=== PATIENT | female | born 1955 | race Caucasian/White ===

== ENCOUNTER 2018-07-18 12:41 | Emergency (ER) | payer MEDICAID ==
[2018-07-18 12:55] VITALS: BMI 24.6
[2018-07-18 12:59] VITALS: RESP 18
[2018-07-18] MEDS ORDERED: Belladonna-Phenobarbital PO STA (13:41)
[2018-07-18] MEDS ORDERED: Aluminum Hydroxide/Magnesium Hydroxide Susp (30 mL) PO STA (13:41)
[2018-07-18] MEDS ORDERED: Belladonna-Phenobarbital ONE (13:51)
[2018-07-18] MEDS ORDERED: Aluminum Hydroxide/Magnesium Hydroxide Susp (30 mL) ONE (13:51)
[2018-07-18 13:53] LABS: BASO % 0.6 % (0.0-2.0); EOS # 0.1 K/uL (0.0-0.7); EOS % 2.4 % (0.0-4.0); HEMOGLOBIN 13.4 g/dL (11.0-16.0); LYMPH # 1.7 K/uL (1.0-4.3); LYMPH % 31.1 % (20.0-40.0); MEAN CELL VOLUME 95.9 fL (81.0-99.0); MEAN CORPUSCULAR HEMOGLOBIN 32.9 pg (27.0-31.0); MEAN CORPUSCULAR HGB CONC 34.3 g/dL (33.0-37.0); MEAN PLATELET VOLUME 7.1 fL (7.2-11.7); MONO # 0.5 K/uL (0.0-0.8); MONO % 8.3 % (0.0-10.0); NEUT # 3.2 K/uL (1.8-7.0); NEUT % 57.6 % (50.0-75.0); RBC 4.06 Mil/uL (3.80-5.20); RED CELL DISTRIBUTION WIDTH 12.8 % (11.5-14.5); WHITE BLOOD COUNT 5.6 K/uL (4.8-10.8)
[2018-07-18 14:08] LABS: ALB/GLOB RATIO 1.9 (1.0-2.1); ALBUMIN 5.1 g/dL (3.5-5.0); ALT/SGPT 13 U/L (9-52); AST/SGOT 28 U/L (14-36); BLOOD UREA NITROGEN 18 mg/dL (7-17); CALCIUM 9.8 mg/dl (8.6-10.4); GFR NON-AFRICAN AMERICAN > 60
[2018-07-18 14:20] LABS: B-TYPE NATRIURETIC PEPTIDE 111 pg/mL (0-900)
[2018-07-18 15:18] VITALS: BP 116/76; PULSE 78; TEMP 98.4; O2SAT 99
--- NOTE | 2018-07-18 16:22 | C.PDOC ---
History Of Present Illness Patient is a 62 year old female, with a PMHx of glaucoma, follows up with ophthalmology, who presents to the ED c/o epigastric abdominal pain that began yesterday. Patient states that the pain is strong and rates it is a 8/10. She al so notes an associated acidic taste on her mouth. She states that she had fired pork and tortillas yesterday and that her pain improves with deep breaths. Patient denies any SOB, dyspnea on exertion, dizziness, sweating, nausea, vomiting, headaches, chills, or pain exacerbation with exercise. Time Seen by Provider: 07/18/18 13:27 Chief Complaint (Nursing): Abdominal Pain History Per: Patient History/Exam Limitations: no limitations Onset/Duration Of Symptoms: Days (1) Current Symptoms Are (Timing): Still Present Pain Scale Rating Of: 8 Location Of Pain/Discomfort: Epigastric Quality Of Discomfort: "Pain" Associated Symptoms: Other (acidic taste in mouth). denies: Chills, Nausea, Vomiting Exacerbating Factors: denies: Movement Alleviating Factors: Other (deep breaths) Recent travel outside of the [place]: No Additional History Per: Patient Past Medical History Reviewed: Historical Data, Nursing Documentation, Vital Signs Vital Signs: Last Vital Signs Temp 98.4 F 07/18/18 15:18 Pulse 78 07/18/18 15:18 Resp 18 07/18/18 15:18 BP 116/76 07/18/18 15:18 Pulse Ox 99 07/18/18 15:18 - Medical History PMH: No Chronic Diseases Surgical History: No Surg Hx Family History: States: No Known Family Hx - Social History Hx Alcohol Use: No Hx Substance Use: No - Immunization History Hx Tetanus Toxoid Vaccination: No Hx Influenza Vaccination: No Hx Pneumococcal Vaccination: No Review Of Systems Constitutional: Negative for: Chills, Sweats ENT: Positive for: Other (acidic taste in mouth) Respiratory: Negative for: Shortness of Breath, SOB with Excertion Gastrointestinal: Positive for: Abdominal Pain (epigastric). Negative for: Nausea, Vomiting Neurological: Negative for: Headache, Dizziness Physical Exam - Physical Exam Appears: Non-toxic, No Acute Distress, Other (conversational) Skin: Normal Color, Warm, Dry Head: Atraumatic, Normacephalic Neck: Normal ROM, Supple Chest: Symmetrical, No Deformity Cardiovascular: Rhythm Regular, No Murmur Respiratory: Normal Breath Sounds, No Rales, No Rhonchi, No Wheezing Gastrointestinal/Abdominal: Soft, No Tenderness Extremity: Normal ROM Neurological/Psych: Oriented x3, Normal Speech ED Course And Treatment - Laboratory Results Result Diagrams: 07/18/18 13:48 07/18/18 13:48 Lab Results: Troponin I < 0.0120 ng/mL (0.00-0.120) 07/18/18 13:48 NT-Pro-B Natriuret Pep 111 pg/mL (0-900) 07/18/18 13:48 Total Bilirubin 0.5 mg/dL (0.2-1.3) 07/18/18 13:48 AST 28 U/L (14-36) 07/18/18 13:48 ALT 13 U/L (9-52) 07/18/18 13:48 Alkaline Phosphatase 42 U/L (38-126) 07/18/18 13:48 Total Protein 7.8 g/dL (6.3-8.3) 07/18/18 13:48 Albumin 5.1 g/dL (3.5-5.0) H 07/18/18 13:48 Globulin 2.7 gm/dL (2.2-3.9) 07/18/18 13:48 Albumin/Globulin Ratio 1.9 (1.0-2.1) 07/18/18 13:48 ECG: Interpreted By Me, Viewed By Me ECG Rhythm: Sinus Rhythm Interpretation Of ECG: No ST elevations or depressions Rate From EC O2 Sat by Pulse Oximetry: 99 Medical Decision Making Medical Decision Making: Plan: EKG Labs Pepcid 20mg IVP Maalox 30ml PO 1 tab PO Troponin levels unremarkable. Patient was given medications and upon reassessment states that she feels better. Patient is stable for discharge. Disposition Counseled Patient/Family Regarding: Studies Performed, Diagnosis, Need For Followup, Rx Given - Disposition Referrals: Brandon Dunlap MD [Medical Doctor] - Disposition: HOME/ ROUTINE Disposition Time: 16:21 Condition: STABLE Additional Instructions: Evite comida grasos y picante. Siga con zaragoza doctor. Prescriptions: Famotidine [Pepcid] 40 mg PO HS #30 tablet Instructions: Gastritis (DC) Forms: Gen Discharge Inst Liberian, [id number] (Liberian) - POA Present On Arrival: None - Clinical Impression Clinical Impression: Gastritis - Scribe Statement The provider has reviewed the documentation as recorded by the Concepciónibcari Pollock All medical record entries made by the Scribe were at my direction and personally dictated by me. I have reviewed the chart and agree that the record accurately reflects my personal performance of the history, physical exam, medical decision making, and the department course for this patient. I have also personally directed, reviewed, and agree with the discharge instructions and disposition.
--- NOTE | 2018-07-19 11:09 | CARD ---
APPROVED REPORT Date of service: 07/18/2018 EKG Measurement Heart [id number] <Conclusion> Normal sinus rhythm Normal ECG
== END 2018-07-18 17:13 | disposition home or self-care (01) ==
LOC: C.ER 12:41
DX: K29.70 Gastritis, unspecified, without bleeding (principal)